=== PATIENT | female | born 1965 | race Two or more races ===

== ENCOUNTER 2025-03-28 15:48 | Emergency (ER) | payer SELFPAY ==
[2025-03-28 17:06] VITALS: BP 129/85; PULSE 82; RESP 18; TEMP 36.9; O2SAT 98; BMI 29.8
--- NOTE | 2025-03-28 17:08 | XR_ITS ---
Examination: CT abdomen with intravenous contrast CT pelvis with intravenous contrast 2-D coronal reconstructions 2-D sagittal reconstructions Date and time of exam: March 28, 2025, 1837 hours INDICATIONS: Left lower abdominal pain nausea vomiting today. CTDI: vol (mGy) 9.7 DLP: (mGycm) 509 Technique: Multiple axial sections of the abdomen and pelvis have been obtained. 64 slice high-resolution scanner used. 3 mm axial sections have been obtained, post intravenous injection 60 cc [id number] 2-D sagittal, coronal reconstructions obtained. Low dose protocols were performed. One or more of the following dose reduction techniques were used; automated exposure control, adjustment of the mA and/or KV according to patient size, use of iterative reconstruction technique. Findings: No visualized liver or splenic lesion Absent gallbladder No common hepatic or common bile duct stone No pancreatic or adrenal mass Bilateral renal calculi including 4 mm calculus right kidney 4 mm calculus left kidney Mild left hydronephrosis 5 mm proximal left ureteral calculus Normal appendix No bowel obstruction Aorta normal size Scattered colonic diverticulosis Calcifications in 3 cm uterine area fibroid degeneration No bladder calculi Advanced degenerative disc disease L4-L5, L5-S1 IMPRESSION: Bilateral renal calculi Mild left hydronephrosis, 5 mm proximal left ureteral calculus
--- NOTE | 2025-03-28 17:09 | PD.EDABDPN ---
ED Abdominal Pain RME/HPI General Chief Complaint: Abdominal Pain Stated complaint: LLQ ABD PAIN, N/V Time seen by provider: 03/28/25 15:51 Arrival date/time: 03/28/25 15:48 59-year-old female patient came in for evaluation regarding left lower quadrant pain. Onset of symptoms about 4 hours ago, sudden onset of left lower abdominal pain, described as sharp pain, severity moderate. No fever no vomiting no diarrhea no constipation no other complaints noted. No medication was taken prior to ER visit. Related Data Home Medications ?Medication ?Instructions ?Recorded ?Confirmed cholecalciferol (vitamin D3) PO 12/07/18 Previous Rx's ?Medication ?Instructions ?Recorded ketorolac 10 mg tablet 10 mg PO Q8H PRN pain 5 days #20 03/28/25 tabs tamsulosin 0.4 mg capsule 0.4 mg PO Q24H #14 caps 03/28/25 Allergies Allergy/AdvReac Type Severity Reaction Status Date / Time Sulfa (Sulfonamide Allergy Mild RASH Verified 12/07/18 17:10 Antibiotics) Review of Systems Review of Systems Narrative Review of Systems: Review of system reviewed and within normal limits except mentioned in HPI ED Exam Narrative Physical exam: VITAL SIGNS: Reviewed. GENERAL APPEARANCE: Alert and interactive, follows commands, no acute distress, HEAD AND FACE: Non-traumatic. ENT: PERRL, pink conjunctivitis, eyelid no trauma, Mucous membrane moist. NECK: Supple, nontender, no nuchal rigidity. CHEST: No tenderness, no crepitus, no paradoxical movement, no retractions. LUNGS: Clear, well ventilated, symmetric, no rales, no wheezing, no ronchi, no stridor, good breath sounds bilaterally. HEART: Regular rate, regular rhythm, no murmur, no gallops. ABDOMEN: Soft, positive bowel sounds, nondistended, no guarding, left lower quadrant tenderness, no rebound, no masses, RECTAL: Deferred. GENITAL: Deferred. NEUROLOGICAL: Gross motor function intact sensory function intact, Appropriate for age. MUSCULOSKELETAL: low back nontender, full range of motion. EXTREMITIES: Nontender, full range of motion. SKIN: Color pink, dry, no rash, no lacerations, no abrasions, no contusions. LYMPHATICS: Deferred. Course Quality Measures none Orders Category Date Time Status CT Screening NOW Care 03/28/25 17:[address] abdomen pelvis w con Stat Exams 03/28/25 17:08 Completed CBC Stat Lab 03/28/25 17:16 Completed Comprehensive Metabolic Panel Stat Lab 03/28/25 17:16 Completed Lipase Stat Lab 03/28/25 17:16 Completed Partial Thromboplastin Time Stat Lab 03/28/25 17:16 Completed Urinalysis, C/S if Indicated Stat Lab 03/28/25 17:47 Completed Ketorolac Inj [Toradol Inj] Med 03/28/25 20:06 Discontinued 30 mg IVP X1 ONE Tamsulosin HCl [Flomax] Med 03/28/25 20:07 Discontinued 0.4 mg PO X1 ONE Vital Signs Vital signs: Vital Signs Temperature 98.4 F 03/28/25 17:06 Pulse Rate 82 03/28/25 17:06 Respiratory Rate 18 03/28/25 17:06 Blood Pressure 129/85 H 03/28/25 17:06 Pulse Oximetry (%) 98 03/28/25 17:06 Oxygen Delivery Method Room Air 03/28/25 17:06 Abdominal Pain MDM MDM Narrative MDM Narrative:: 59-year-old female patient came in for evaluation regarding left lower quadrant pain. Onset of symptoms about 4 hours ago, sudden onset of left lower abdominal pain, described as sharp pain, severity moderate. No fever no vomiting no diarrhea no constipation no other complaints noted. No medication was taken prior to ER visit. Patient urinalysis significant for hematuria no sign of UTI. There is of the left unremarkable. She described abdomen and pelvis showed 5 mm proximal ureteral stone on the left and bilateral kidney stone also noted. Patient was given a copy of her CT scan. Patient was advised to follow-up with urologist. Prior to discharge patient is not having any pain after patient received Toradol. She is able to urinate without any difficulty in the emergency room. Patient data External records reviewed:: None Clinical information provided by:: patient Social determinants that could affect healthcare access:: none Patient has the following chronic illnesses:: None How is presenting disease/condition affected by chronic disease/condition?: no chronic disease Evaluation data The following diagnostics were reviewed and interpreted by me:: lab results and radiology exam(s) Lab and/or radiology exams considered but not ordered:: None Interpretation Summary: See above Medications / Prescriptions Medications or Prescriptions considered but not ordered:: None Medication administrations:: Medication Administration History Discontinued Medications Ketorolac Tromethamine (Ketorolac Inj 30 Mg/Ml Vial) 30 mg IVP X1 ONE Stop: 03/28/25 20:07 Tamsulosin HCl (Tamsulosin Hcl 0.4 Mg Capsule) 0.4 mg PO X1 ONE Stop: 03/28/25 20:08 Toradol Flomax Consultations Consultation(s) initiated? (list below): No Diagnosis Differential diagnosis abdominal pain: abdominal pain and calculus of kidney Most likely diagnosis given after review of the tests above:: Ureterolithiasis, kidney stones Admission Indicated Admission indicated?: not indicated Admission Request Was there a request for admission?: No Disposition Plan Disposition Plan: Discharge Discharge Attestation Discharge Attestation: The patient was given an opportunity to ask questions and understood the discharge instructions. Discharge instructions specifically effects, indications for sooner follow up or return to the emergency department, and the expected course of current diagnosis. Patient condition: Stable Discharge Plan Plan Patient Disposition: HOME (Self Care) Discharge Disposition comment: Stable Prescriptions/Referrals Prescriptions/Med Rec: New tamsulosin 0.4 mg capsule 0.4 mg PO Q24H Qty: 14 0RF ketorolac 10 mg tablet 10 mg PO Q8H PRN (Reason: pain) 5 Days Qty: 20 0RF No Action cholecalciferol (vitamin D3) PO Referrals: Angie Head [Primary Care Provider] - In 1 week Problem List Clinical Impression: Ureterolithiasis, Calculus of kidney Patient/Caregiver Discharge Instructions Discharge Activity: activity as tolerated Education Materials: ED Kidney Stone w/ Colic Additional Instructions: Thank you for the opportunity for serving you today. You are stable for discharged . You are advised to: Follow-up with your PCP in 1 to 2 days and asked for referral to urologist Return to ED for worsening of symptoms Increase oral fluids Take medication as prescribed Please strain your urine and collect the stone for your urologist visit Print Language: Citizen Of The [place] Stand Alone Forms: Neela Award Info., Patient Portal Info Letter PA/WENDI Supervising Physician MKIE/WENDI Supervising Physician: MD Mumtaz
[2025-03-28 17:32] LABS: Basophils # (Auto) 0.0 Thou/mm3 (0.0-0.2); Basophils % (Auto) 0 % (0-2.5); Eosinophils # (Auto) 0.3 Thou/mm3 (0.0-0.5); Eosinophils % (Auto) 3 % (0-10); Hematocrit 45.3 % (36.0-46.0); Hemoglobin 15.2 g/dL (12.0-16.0); Immature Granulocytes Auto 0.02 Thou/mm3 (0.00-0.00); Lymphocytes # (Auto) 1.8 Thou/mm3 (1.0-4.8); Lymphocytes % (Auto) 17 % (10-50); Mean Corpuscular HGB Conc 33.6 g/dl (31.0-37.0); Mean Corpuscular Hemoglobin 29.7 pg (25.0-35.0); Mean Corpuscular Volume 89 fL (80-100); Monocytes # (Auto) 0.9 Thou/mm3 (0.0-0.8); Monocytes % (Auto) 8 % (0-12); Neutrophils # (Auto) 7.8 Thou/mm3 (1.8-7.7); Neutrophils % (Auto) 72 % (37-80); Nucleated Red Blood Cell # 0.00 Thou/mm3 (0.00-0.00); Nucleated Red Blood Cell % 0 /100 WBC (0); Platelet Count 370 Thou/mm3 (140-440); RDW Standard Deviation 41.8 fL (36.4-46.3); Red Blood Count 5.11 Miln/mm3 (4.00-5.20); White Blood Count 10.8 Thou/mm3 (3.6-11.0)
[2025-03-28 17:50] LABS: Alanine Aminotransferase 30 U/L (10-49); Albumin, Serum 4.7 gm/dL (3.5-5.0); Albumin/Globulin Ratio 1.5 (1.2-2.2); Alkaline Phosphatase 105 U/L (46-116); Anion Gap 9 (7-16); Aspartate Amino Transferase 33 U/L (0-34); BUN/Creatinine Ratio 14 Ratio (12-20); Bilirubin,Total 0.4 mg/dL (0.3-1.2); Blood Urea Nitrogen 11 mg/dL (9-23); Calcium 9.6 mg/dL (8.3-10.6); Calcium (Corrected) 9.6 mg/dL (8.5-10.1); Carbon Dioxide 28.0 mMol/L (20.0-31.0); Chloride 105 mMol/L (98-107); Creatinine (Component) 0.8 mg/dL (0.6-1.3); Estimated Creatinine Clearance 83.7 mL/min (>60); Globulin 3.1 gm/dL (2.3-3.5); Glucose 117 mg/dL (74-106); Lipase 31 U/L (12-53); Osmolality,Calculated 283 (275-295); Potassium 3.8 mMol/L (3.4-5.1); Sodium 142 mMol/L (136-145); Total Protein 7.8 gm/dL (5.7-8.2); eGFR > 60 See Note
[2025-03-28 17:52] LABS: Collection Type, Urine Clean Catch
[2025-03-28 17:56] LABS: Partial Thromboplastin Time 27.7 Seconds (22.0-36.0)
[2025-03-28 18:06] LABS: Bilirubin,Urine Negative (Negative); Blood,Urine 3+ (Negative); Clarity,Urine Turbid (Clear/Hazy); Color,Urine Lt-Yellow (Lt Yel-Yel); Culture Indicated,Urine Not Indicated; Glucose, Urine Negative (Negative); Ketones,Urine Negative (Negative); Leukocyte Esterase,Urine Negative (Negative); Nitrite,Urine Negative (Negative); PH,Urine 8.0 (5.0-7.0); Protein,Urine Trace (Neg - Trace); RBC,Urine 1130 /hpf (0-3); Specific Gravity,Urine 1.011 (1.001-1.035); Squamous Epithelial Cell,Urine 1 /hpf (0-5); Urobilinogen,Urine Negative mg/dL (0.0-1.0); WBC,Urine 1 /hpf (0-5)
[2025-03-28] MEDS: TAMSULOSIN HCL 0.4 MG CAPSULE PO (20:17)
[2025-03-28] MEDS: KETOROLAC INJ 30 MG/ML VIAL IVP (20:20)
== END 2025-03-28 20:24 | disposition home or self-care (01) ==
PROVIDERS: Nurse Practitioner Family; Emergency Provider Emergency Medicine; PCP Physician Assistant
DX: N20.2 Calculus of kidney with calculus of ureter (principal)
CPT/HCPCS: 36415; 74177; 80053; 81001; 83690; 85025; 85730; 96374; 99283; A4649; J1885; Q9967; A9270